=== PATIENT | female | born 1965 ===

== ENCOUNTER 2022-12-15 05:30 | Day surgery (SDC) | payer OTHER | END 2022-12-15 11:55 | disposition home or self-care (01) | LOC: AMB-ENDOS 05:30 | PROVIDERS: ATTEND Colon & Rectal Surgery | DX: K63.89 Other specified diseases of intestine (principal); K64.8 Other hemorrhoids; R19.4 Change in bowel habit; Z20.822 Contact with and (suspected) exposure to COVID-19 ==